=== PATIENT | female | born 1990 | race Caucasian/White ===

== ENCOUNTER 2018-08-07 20:18 | Emergency (ER) | payer OTHER ==
[~2018-08-07] VITALS: Ht 157.5 cm; Wt 61.2 kg
[2018-08-07] MEDS ORDERED: IV NORMAL SALINE 1000ML BAG 1,000 ML IV ONE (22:00)
[2018-08-07 22:05] LABS: BASO % 0 % (0-3); EOS # 0.2 x10^3/uL (0.0-0.7); EOS % 3 % (0-3); HEMATOCRIT 29.7 % (36.0-47.0); HEMOGLOBIN 10.2 g/dL (12.0-15.5); LYMPH # 1.4 x10^3/uL (1.0-4.8); LYMPH % 20 % (24-48); MEAN CORPUSCULAR HEMOGLOBIN 33 pg (25-35); MEAN CORPUSCULAR HGB CONC 34 g/dL (31-37); MEAN CORPUSCULAR VOLUME 95 fL (79-100); MONO # 0.6 x10^3/uL (0.0-1.1); MONO % 8 % (0-9); NEUT % 69 % (31-73); PLATELET COUNT 217 x10^3/uL (140-400); RED BLOOD COUNT 3.12 x10^6/uL (3.50-5.40); RED CELL DISTRIBUTION WIDTH 13.1 % (11.5-14.5); WHITE BLOOD COUNT 7.3 x10^3/uL (4.0-11.0)
[2018-08-07 22:13] LABS: CALCIUM 8.5 mg/dL (8.5-10.1); CREATININE 0.6 mg/dL (0.6-1.0); GFR 120.8; POTASSIUM 3.4 mmol/L (3.5-5.1)
[2018-08-07 22:19] LABS: ALBUMIN 2.6 g/dL (3.4-5.0); ALBUMIN/GLOBULIN RATIO 0.8 (1.0-1.7); TOTAL BILIRUBIN 0.1 mg/dL (0.2-1.0)
[2018-08-07 22:39] LABS: BILIRUBIN,URINE NEGATIVE (NEG); CLARITY,URINE CLOUDY; COLOR,URINE YELLOW; NITRITE,URINE POSITIVE (NEG); PROTEIN,URINE NEGATIVE (NEG-TRACE); UROBILINOGEN,URINE 0.2 mg/dL (0.2 mg/dL)
[2018-08-07 22:44] LABS: BACTERIA,URINE MANY /HPF (0-FEW); RBC,URINE 0 /HPF (0-2); SQUAMOUS EPITHELIAL CELL,UR MOD /LPF
[2018-08-07] MEDS ORDERED: NITR100C62 PO (23:17)
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
[2018-08-07 23:23] VITALS: BP 94/42
--- NOTE | 2018-08-09 08:44 | EKG ---
[facility] [address] [place] [address] Test Date: 2018-08-07 Test Time: 21:52:55 Pat Name: CHECO CONNELL Department: Room: Gender: F Ed Educational Aide: : 1990 Requested By: DOROTEO RAINES Order Number: [id number] Reading MD: Herb Caicedo Measurements Intervals [place] Rate: 70 P: 31 KS: 124 QRS: 35 QRSD: 74 T: 34 QT: 360 QTc: 391 Interpretive Statements SINUS RHYTHM NONSPECIFIC ST-T WAVE CHANGES. Electronically Signed On 08-12-2018 13:04:28 CDT by Herb Caicedo
== END 2018-08-07 23:26 | disposition home or self-care (01) ==
LOC: ER 20:18
DX: O26.893 Other specified pregnancy related conditions, third trimester (principal); R42 Dizziness and giddiness; O23.43 Unspecified infection of urinary tract in pregnancy, third trimester; Z3A.28 28 weeks gestation of pregnancy
CPT/HCPCS: 36415; 80053; 81001; 85025; 87086; 93005; 96360; 99285; J7030; 87186